=== PATIENT | female | born 1980 | race Caucasian/White ===

== ENCOUNTER 2016-09-04 14:21 | Emergency (ER) | payer MEDICAID ==
[2015-09-21 06:13] VITALS: BMI 28.3
[~2016-09-04 14:21] MED LIST: HYDROCODONE-APA1 TAB PO; IBUPROFEN600 MG PO; NEXIUM40 MG PO; PAXIL20 MG PO; PRENATAL COMPLE1 TAB; PRENATAL COMPLE1 TAB PO; XANAX0.25 MG PO
[2016-09-04 16:18] LABS: BASOPHILS 0.3 % (0-2); HEMATOCRIT 42.8 % (36.0-48.0); HEMOGLOBIN 14.1 g/dL (12-16); LYMPHOCYTES 20.4 % (15-50); MCH 31.4 pg (26.0-34.0); MCHC 32.9 g/dL (31.0-37.0); MCV 95.3 fL (80.0-100.0); NEUTROPHILS 69.3 % (40-80); RBC 4.49 10x6/uL (4.00-5.40); RDW 13.8 % (11.5-14.5); WBC 6.6 10x3/uL (4.8-10.8)
[2016-09-04 16:20] LABS: PLATELET COUNT 244 10x3/uL (130-400)
[2016-09-04 16:37] LABS: ALBUMIN 4.1 g/dL (3.4-5.0); ANION GAP 14.5 mmol/L (8-16); BILIRUBIN - TOTAL 0.19 mg/dL (0.2-1.3); CARBON DIOXIDE 27.4 mmol/L (21.0-32.0); CREATININE - SERUM 1.5 mg/dL (0.6-1.3); POTASSIUM - SERUM 3.9 mmol/L (3.5-5.1); PROTEIN - SERUM 7.8 g/dL (6.4-8.2)
== END 2016-09-04 17:56 | disposition home or self-care (01) ==
LOC: D.ER 14:21
PROVIDERS: Emergency Medicine
DX: F41.9 Anxiety disorder, unspecified (principal); G62.9 Polyneuropathy, unspecified

== ENCOUNTER 2016-09-10 08:56 | Inpatient (IN) | payer MEDICAID ==
[~2016-09-10] VITALS: Ht 165.1 cm; Wt 82.0 kg
[2016-09-10 15:59] LABS: BASOPHILS 0.2 % (0-2); EOSINOPHILS 0.4 % (0-7); HEMATOCRIT 45.3 % (36.0-48.0); HEMOGLOBIN 14.5 g/dL (12-16); IMMATURE GRANULOCYTES 0.2 % (0-5); LYMPHOCYTES 8.1 % (15-50); MCH 31.5 pg (26.0-34.0); MCV 98.5 fL (80.0-100.0); MEAN PLATELET VOLUME 11.8 fL (7.4-10.4); MONOCYTES 3.9 % (2-11); NEUTROPHILS 87.2 % (40-80); RDW 13.9 % (11.5-14.5); WBC 12.2 10x3/uL (4.8-10.8)
[2016-09-10 16:08] LABS: PLATELET COUNT 135 10x3/uL (130-400)
[2016-09-10 16:15] LABS: ALBUMIN 4.2 g/dL (3.4-5.0); ALKALINE PHOSPHATASE 78 U/L (46-116); ALT (SGPT) 23 U/L (10-68); CALC OSMOLALITY 279 mosm/kg (275-300); CALCIUM 9.2 mg/dL (8.5-10.1); CARBON DIOXIDE 24.7 mmol/L (21.0-32.0); CHLORIDE - SERUM 105 mmol/L (98-107); CREATININE - SERUM 0.7 mg/dL (0.6-1.3); GLUCOSE 95 mg/dL (74-106); POTASSIUM - SERUM 4.2 mmol/L (3.5-5.1); PROTEIN - SERUM 7.5 g/dL (6.4-8.2); SODIUM 141 mmol/L (136-145); UREA NITROGEN 10 mg/dL (7-18); eGFR NON AFRICAN AMERICAN > 90 mL/min (90-120)
--- NOTE | 2016-09-10 17:01 | NUR ---
RECEIVED TO ROOM 2203 AT THIS TIME FROM ER VIA WHEELCHAIR. ALERT AND ORIENTED AND AMBULATES PER SELF. SPOUSE AT BEDSIDE.
[2016-09-10 17:18] VITALS: BP 112/60
--- NOTE | 2016-09-10 17:30 | NUR ---
PRN MORPHINE AND MOTRIN ADMINISTERED FOR HEADACHE PAIN 10/10 AND MOTRIN FOR FEVER.
[2016-09-10 18:35] VITALS: BP 112/60; Ht 165.1 cm; Wt 82.0 kg
--- NOTE | 2016-09-10 19:00 | NUR ---
BEDSIDE REPORT RECEIVED AND CARE OF PT ASSUMED. PT LYING IN SEMI DESAI'S POSITION WATCHING TV. IV IN LEFT HAND PATENT WITH NS INFUSING AT 50 ML / HR. WILL MONITOR INOCENCIOLEY FOR NEEDS.
--- NOTE | 2016-09-10 19:30 | NUR ---
GAVE XANAX PER REQUEST FOR ANXIETY AND MEDINA, PER PRN ORDER.
[2016-09-10 20:00] VITALS: BP 115/55
--- NOTE | 2016-09-10 21:15 | NUR ---
GAVE MORPHINE PER ORDER PER REQUEST FOR HEADACHE.
[2016-09-10 21:31] LABS: UDS - AMPHET NEGATIVE QUAL (NEGATIVE); UDS - BARB NEGATIVE QUAL (NEGATIVE); UDS - BENZO NEGATIVE QUAL (NEGATIVE); UDS - COCAINE NEGATIVE QUAL (NEGATIVE); UDS - METH NEGATIVE QUAL (NEGATIVE); UDS - OPIATE NEGATIVE QUAL (NEGATIVE); UDS - PCP NEGATIVE QUAL (NEGATIVE); UDS - THC NEGATIVE QUAL (NEGATIVE)
--- NOTE | 2016-09-10 22:02 | NUR ---
MVI STARTED PER ORDER AFTER RECEIVING FROM PHARMACY.
--- NOTE | 2016-09-10 23:13 | NUR ---
GAVE MOTRIN 600 MG PO PER REQUEST FOR HEADACHE.
[2016-09-11] VITALS: BP 102/49
--- NOTE | 2016-09-11 02:24 | NUR ---
GAVE MORPHINE 2 MG IVP PER REQUEST FOR HEADACHE. WILL MONITOR FOR EFFECTIVENESS.
[2016-09-11 04:00] VITALS: BP 85/52
[2016-09-11 05:40] LABS: BASOPHILS 0.3 % (0-2); EOSINOPHILS 1.8 % (0-7); HEMATOCRIT 39.9 % (36.0-48.0); IMMATURE GRANULOCYTES 0.1 % (0-5); LYMPHOCYTES 26.9 % (15-50); MCH 31.3 pg (26.0-34.0); MCHC 32.6 g/dL (31.0-37.0); MEAN PLATELET VOLUME 11.4 fL (7.4-10.4); MONOCYTES 6.7 % (2-11); NEUTROPHILS 64.2 % (40-80); RBC 4.16 10x6/uL (4.00-5.40); RDW 13.8 % (11.5-14.5)
[2016-09-11 05:43] LABS: MCV 95.9 fL (80.0-100.0); PLATELET COUNT 206 10x3/uL (130-400); WBC 6.8 10x3/uL (4.8-10.8)
[2016-09-11 06:29] LABS: ALKALINE PHOSPHATASE 59 U/L (46-116); ALT (SGPT) 18 U/L (10-68); CALCIUM 7.7 mg/dL (8.5-10.1); CARBON DIOXIDE 24.1 mmol/L (21.0-32.0); CHLORIDE - SERUM 108 mmol/L (98-107); CREATININE - SERUM 0.6 mg/dL (0.6-1.3); GLUCOSE 94 mg/dL (74-106); POTASSIUM - SERUM 3.8 mmol/L (3.5-5.1); PROTEIN - SERUM 5.8 g/dL (6.4-8.2); SODIUM 141 mmol/L (136-145); eGFR NON AFRICAN AMERICAN > 90 mL/min (90-120)
[2016-09-11 06:31] LABS: CALC OSMOLALITY 280 mosm/kg (275-300); UREA NITROGEN 13 mg/dL (7-18)
--- NOTE | 2016-09-11 07:20 | NUR ---
DR SCHUSTER ON THE FLOOR TO SEE PT. PT IS NOT IN HER ROOM AND IS AMBULATING AROUND THE HOSPITAL.
--- NOTE | 2016-09-11 07:50 | NUR ---
BACK TO ROOM FROM AMBULATING. EXPLAINED THAT THE NEUROLOGIST WAS HERE TO SEE PT AND SHE WAS NOT IN HER ROOM, SO HE LEFT. PT VERBALIZED UNDERSTANDING. CIGARETTES IN PT'S HAND UPON ARRIVAL BACK TO ROOM. EXPLAINED TO PT THAT SHE COULD NOT CONTINUE TO RECEIVE IV PAIN MEDICATION IF SHE WAS GOING TO CONTINUE TO GO OUTSIDE AND SMOKE. PT VERBALIZED UNDERSTANDING. DIP PAINTER PHYSICIAN PAGED WITH DR HARPER. CALL LIGHT IN REACH, WILL CONTINUE WITH PLAN OF CARE.
--- NOTE | 2016-09-11 09:51 | NUR ---
PRN NORCO-5 ADMINISTERED FOR HEADACHE AT THIS TIME. PAIN IS 8/10. PT PREPARING TO GET IN THE SHOWER AT THIS TIME. SIGNIFICANT OTHER AT BEDSIDE. WILL CONTINUE WITH PLAN OF CARE.
--- NOTE | 2016-09-11 10:55 | NUR ---
SCHEDULED CHRONULAC ADMINISTERED AT THIS TIME. DEEDEE BARNEY AT BEDSIDE ASSESSING PT. DENIES NEEDS AT THIS TIME. CALL LIGHT IN REACH, WILL CONTINUE WITH PLAN OF CARE.
[2016-09-11 12:24] VITALS: BP 96/51
[2016-09-11 15:34] VITALS: BP 110/60
--- NOTE | 2016-09-11 16:00 | NUR ---
Patient Name: NAVARRO BARBOSA Admission Status: ER Accout number: [id number] Admission Date: 09-10-2016 : 1980 Admission Diagnosis: Attending: ABDULKADIR Current LOS: 1 Anticipated DC Date: 09-13-2016 Planned Disposition: Home Primary Insurance: [employer] Discharge Planning Comments: CM MET WITH PATIENT REGARDING D/C NEEDS AND PLANS. PATIENT STATED SHE LIVES WITH A ROOMMATE. PATIENT STATED HER FRIEND MARTY WILL DRIVE HER HOME AT DISCHARGE. PATIENT HAS 6 STEPS W/RAILS TO ENTER HOME AND NO STAIRS INSIDE. PATIENT IS INDEPENDENT WITH HER CARE AND HAS NO DME AT HOME. PATIENTS PCP IS DR. GARCIA AND PHARMACY IS [facility] [address]. PATIENT DOES NOT WANT HOME HEALTH. CM WILL CONTINUE TO FOLLOW PATIENT WITH D/C NEEDS AND PLANS. PCP DR. JO[facility] [address] (PHARMACY) [phone] MARTY (FRIEND) [phone] Stock Holder: Gabriela Fountain Is the patient Alert and Oriented? Yes 0 * How many steps to enter\exit or inside your home? 6 W/RAILS 0 * PCP DR. GARCIA 0 * Pharmacy [facility] [address] 0 * Preadmission Environment Home with Family 0 * ADLs Independent 0 * Equipment None 0 * List name and contact numbers for known caregivers / representatives who currently or will assist patient after discharge: MARTY (FRIEND) [phone] * Community resources currently utilized None 0 * Additional services required to return to the preadmission environment? Yes 0 * Can the patient safely return to the preadmission environment? Yes 0 * Has this patient been hospitalized within the prior 30 days at any hospital? No 0 Grand Total: 0
[2016-09-11 19:00] VITALS: BP 99/52
--- NOTE | 2016-09-11 19:00 | NUR ---
BEDSIDE REPORT RECEIVED AND CARE OF PT ASSUMED. PT LYING IN SUPINE POSITION WATCHING TV. IV IN LEFT HAND PATENT WITH NS INFUSING AT 50 ML / HR AND MVI INFUSING AT 125 ML / HR. WILL MONITOR CLOSLEY FOR NEEDS.
--- NOTE | 2016-09-11 20:00 | NUR ---
HS MEDICATIONS GIVEN TO INCLUDE NORCO 5 FOR C/O HEADACHE AT LEVEL 7/10. WILL CONTINUE TO MONITOR FOR NEEDS. CALL LIGHT WITHIN REACH.
[2016-09-12] VITALS: BP 100/51
--- NOTE | 2016-09-12 00:30 | NUR ---
PT RESTING QUIETLY IN SUPINE POSITION WITH EYES CLOSED AND UNLABORED BREATHING. SIDE RAILS UP X2 FOR SAFETY.
[2016-09-12 04:00] VITALS: BP 95/56
[2016-09-12 04:49] LABS: BASOPHILS 0.4 % (0-2); EOSINOPHILS 3.4 % (0-7); HEMATOCRIT 38.7 % (36.0-48.0); HEMOGLOBIN 12.4 g/dL (12-16); IMMATURE GRANULOCYTES 0.1 % (0-5); MCH 31.2 pg (26.0-34.0); MCV 97.2 fL (80.0-100.0); MEAN PLATELET VOLUME 11.7 fL (7.4-10.4); MONOCYTES 7.2 % (2-11); NEUTROPHILS 61.9 % (40-80); PLATELET COUNT 196 10x3/uL (130-400); RBC 3.98 10x6/uL (4.00-5.40); RDW 13.7 % (11.5-14.5); WBC 6.8 10x3/uL (4.8-10.8)
[2016-09-12 05:16] LABS: ALBUMIN 2.9 g/dL (3.4-5.0); ALKALINE PHOSPHATASE 69 U/L (46-116); ALT (SGPT) 18 U/L (10-68); BILIRUBIN - TOTAL 0.11 mg/dL (0.2-1.3); CALC OSMOLALITY 279 mosm/kg (275-300); CALCIUM 7.7 mg/dL (8.5-10.1); CARBON DIOXIDE 25.5 mmol/L (21.0-32.0); CHLORIDE - SERUM 111 mmol/L (98-107); CREATININE - SERUM 0.6 mg/dL (0.6-1.3); GLUCOSE 96 mg/dL (74-106); POTASSIUM - SERUM 4.3 mmol/L (3.5-5.1); PROTEIN - SERUM 5.5 g/dL (6.4-8.2); SODIUM 141 mmol/L (136-145); UREA NITROGEN 11 mg/dL (7-18); eGFR NON AFRICAN AMERICAN > 90 mL/min (90-120)
--- NOTE | 2016-09-12 07:27 | NUR ---
SCHEDULED CHRONULAC ADMINISTERED AT THIS TIME. PAIN 7/10 IN PT'S HEAD. DENIES NEEDS AT THIS TIME. ASSESSMENT PERFORMED PER FLOWSHEET. CALL LIGHT IN REACH, WILL CONTINUE WITH PLAN OF CARE.
[2016-09-12 07:36] VITALS: BP 97/62
[2016-09-12] MEDS ORDERED: ATIVAN1 MG PO (10:34)
[2016-09-12] MEDS ORDERED: CHRONULAC30 ML PO (10:39)
[2016-09-12] MEDS ORDERED: NICODERM C1 PATCH .1 TRANSDERM (10:39)
[2016-09-12] MEDS ORDERED: VITAMIN B-1100 M1 PO (10:39)
[2016-09-12] MEDS ORDERED: FOLIC ACID1 MG PO (10:40)
--- NOTE | 2016-09-12 12:04 | NUR ---
CM REASSESSMENT NOTE: PATIENT IS DISCHARGING TODAY-ROOMMATE IS DRIVING HER HOME AND PATIENT DENIED HOME HEALTH OR ANY OTHER NEEDS FOR DISCHARGE.
--- NOTE | 2016-09-12 12:13 | NUR ---
CM REASSESSMENT NOTE: PATIENT IS DISCHARGING TODAY-ROOMMATE IS DRIVING HER HOME AND PATIENT DENIED HOME HEALTH OR ANY OTHER NEEDS FOR DISCHARGE.
--- NOTE | 2016-09-12 12:15 | NUR ---
D/C HOME AT THIS TIME.
== END 2016-09-12 12:15 | disposition home or self-care (01) | DRG 74 ==
LOC: D.ER 08:56 → D.MS 16:15 → OBSVTIME 16:15 → D.MS 16:16
PROVIDERS: Emergency Medicine; ADMIT Family Medicine Adult Medicine
DX: G62.9 Polyneuropathy, unspecified (principal); F17.203 Nicotine dependence unspecified, with withdrawal; E72.20 Disorder of urea cycle metabolism, unspecified; R47.81 Slurred speech; R26.9 Unspecified abnormalities of gait and mobility; R41.0 Disorientation, unspecified; F41.8 Other specified anxiety disorders; F10.20 Alcohol dependence, uncomplicated